=== PATIENT | female | born 1990 | race Caucasian/White ===

== ENCOUNTER 2023-08-10 07:30 | Outpatient (CLI) | payer OTHER, SELFPAY | END 2023-08-10 07:31 | disposition home or self-care (01) | LOC: NFLDREF 08-13 07:39 | PROVIDERS: PCP Family Medicine; Referring Provider Family Medicine; Visit Provider Family Medicine | DX: Z13.9 Encounter for screening, unspecified (principal); Z13.6 Encounter for screening for cardiovascular disorders | CPT/HCPCS: 80053; 80061 ==

== ENCOUNTER 2023-10-12 16:41 | Outpatient (CLI) | payer OTHER, SELFPAY ==
--- NOTE | 2023-10-12 16:45 | CRLHL7_ITS ---
For Patients: As a result of the Century Cures Act, medical imaging exams and procedure reports are released immediately into your electronic medical record. You may view this report before your referring provider. If you have questions, please contact your health care provider. Indication: Ear pain. History of left-sided cholesteatoma Technique: Noncontrast high-resolution axial CT of the temporal bones with coronal reformats are provided. No comparisons. Findings: The ossicular chains bilaterally are intact. The left stapes appears slightly hyperdense and may represent a prosthetic element. The internal and external auditory canals are within normal limits. The cochlea and semicircular canals bilaterally appear within normal limits. The right scutum is refined. The left scutum appears mildly blunted; however, no adjacent soft tissue irregularity is seen. No suspicious masses within the epitympanic recess. The mastoid air cells bilaterally are well pneumatized and aerated. Impression: 1. Mild blunting of the left scutum with no suspicious soft tissue irregularity within Prussak`s space that may represent residual from prior cholesteatoma. No active changes are seen at this time. 2. Otherwise, unremarkable CT of the temporal bones. Please note that all CT scans at this facility use dose modulation, iterative reconstruction, and/or weight-based dosing when appropriate to reduce radiation dose to as low as reasonably achievable. Dictated by Vasquez Taveras MD @ 10/16/2023 10:15:37 AM (Electronically Signed)
== END 2023-10-12 16:42 | disposition home or self-care (01) ==
LOC: CT 16:42
PROVIDERS: PCP Family Medicine; Visit Provider Otolaryngology
DX: H92.09 Otalgia, unspecified ear (principal); H71.92 Unspecified cholesteatoma, left ear
CPT/HCPCS: 70480